=== PATIENT | male | born 1985 | race Two or more races ===

== ENCOUNTER 2023-04-26 00:46 | Emergency (ER) | payer SELFPAY ==
[~2023-04-26] VITALS: Ht 165.1 cm; Wt 122.7 kg
[2023-04-26] MEDS ORDERED: SODIUM CHLORIDE 0.9% 1,000 ML IV ONE (01:15)
[2023-04-26 01:51] LABS: Basophils # (auto) 0 10 ^3/uL (0-0.2); Basophils % (auto) 0.2 % (0.0-2.0); Eosinophils # (auto) 0 10 ^3/uL (0-0.8); Eosinophils % (auto) 0.1 % (0.0-7.0); Hemoglobin 16.2 g/dL (13.5-17.5); Lymphocytes # (auto) 1.7 10 ^3/uL (0.4-5.4); Lymphocytes % (auto) 9.6 % (10.0-50.0); Mean Corpuscular Hemoglobin 30.4 pg (28.0-32.0); Mean Corpuscular Hgb Conc. 34.4 g/dL (32.0-36.0); Mean Corpuscular Volume 88.4 fL (80.0-100.0); Monocytes # (auto) 0.9 10 ^3/uL (0-1.3); Neutrophils # (auto) 14.8 10 ^3/uL (1.6-8.6); Neutrophils % (auto) 85.1 % (37.0-80.0); Red Blood Cells 5.31 10^6/uL (4.5-5.90); Red Cell Distribution Width 13.3 % (11.8-14.3); White Blood Cell 17.4 10^3/uL (4.4-10.8)
[2023-04-26 02:10] LABS: Albumin 4.2 g/dL (3.4-5.0); BUN/Creatinine Ratio 9.3 (10.0-20.0); Potassium 3.9 mmol/L (3.5-5.1)
[2023-04-26 02:13] LABS: Bilirubin, Total 0.4 mg/dL (0.2-1.0)
[2023-04-26] MEDS ORDERED: AZITHROMYCIN 250 MG TAB PO ONE (02:45)
[2023-04-26] MEDS ORDERED: cefTRIAXone 1GM/50ML D5W 50 ML IV ONE (02:45)
[2023-04-26] MEDS ORDERED: AZIT-43 PO (02:54)
[2023-04-26 04:21] VITALS: BP 154/91; PULSE 117; RESP 20; TEMP 97.9; O2SAT 96
== END 2023-04-26 04:26 | disposition home or self-care (01) ==
LOC: ER 00:50
DX: R00.0 Tachycardia, unspecified (principal); E86.0 Dehydration; J40 Bronchitis, not specified as acute or chronic; Z88.0 Allergy status to penicillin
CPT/HCPCS: 36415; 71045; 80053; 84484; 85025; 93005; 96360; 99285; J7030